=== PATIENT | male | born 1995 | race African-American/Black ===

== ENCOUNTER 2020-11-27 09:36 | Emergency (ER) | payer OTHER, SELFPAY ==
[2020-11-27 09:40] VITALS: BP 133/90; PULSE 82; RESP 18; TEMP 36.8; O2SAT 100
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
[2020-11-27 12:09] VITALS: BP 130/87; PULSE 81; RESP 17; O2SAT 100
== END 2020-11-27 13:39 | disposition home or self-care (01) ==
PROVIDERS: Emergency Provider Emergency Medicine; PCP Family Medicine
DX: S51.832D Puncture wound without foreign body of left forearm, subsequent encounter (principal); W34.00XD Accidental discharge from unspecified firearms or gun, subsequent encounter
CPT/HCPCS: 99281